=== PATIENT | female | born 1940 | race Caucasian/White ===

== ENCOUNTER 2019-07-16 21:22 | Inpatient (IN) | payer MEDICARE ==
[~2019-07-16] VITALS: Ht 154.9 cm; Wt 54.1 kg
[2019-07-16 20:00] VITALS: BP 92/55
[2019-07-16] MEDS ORDERED: SODIUM CHLORIDE FLUSH 10ML SYR IVF ONE (21:30)
[2019-07-16] MEDS ORDERED: SODIUM CHLORIDE 0.9% 1,000ML IVBOLUS ONE (21:30)
[2019-07-16] MEDS ORDERED: ONDANSETRON 2MG/ML, 2ML IVPush ONE (21:30)
[2019-07-16] MEDS ORDERED: MORPHINE SULFATE 4 MG/ML, 1ML ONE (21:36)
[2019-07-16] MEDS ORDERED: ONDANSETRON 2MG/ML, 2ML ONE (21:36)
[2019-07-16 21:58] LABS: RAPID INFLUENZA A Negative (Negative); RAPID INFLUENZA B Negative (Negative)
[2019-07-16 22:00] LABS: MEAN CORPUSCULAR HEMOGLOBIN 31.9 pg (27.0-34.8); MEAN CORPUSCULAR HGB CONC 32.9 g/dL (32.4-35.8); MEAN CORPUSCULAR VOLUME 97.1 fL (80-100); MEAN PLATELET VOLUME 7.3 fL (7.4-10.4); PLATELET COUNT 230 x10^3/uL (130-400); RED BLOOD COUNT 2.98 x10^6/uL (3.82-5.3); RED CELL DISTRIBUTION WIDTH 14.9 % (9.6-15.2)
[2019-07-16] MEDS ORDERED: MORPHINE SULFATE 4 MG/ML, 1ML IVPush PRN (22:00)
[2019-07-16] MEDS ORDERED: ALBUTEROL/IPRATROPIUM 2.5MG/0.5MG, 3 ML NPPB ONE (22:00)
--- NOTE | 2019-07-16 22:03 | NUR ---
DRE LEE [phone]
[2019-07-16 22:08] LABS: ALANINE AMINOTRANSFERASE 21 U/L (12-78); ALBUMIN 2.9 g/dL (3.4-5.0); ANION GAP 5 mmol/L (5-15); CALCIUM 8.3 mg/dL (8.5-10.1); CHLORIDE 102 mmol/L (98-107)
[2019-07-16 22:12] LABS: ALKALINE PHOSPHATASE 78 U/L (45-117); BILIRUBIN,TOTAL 0.5 mg/dL (0.2-1.0); TOTAL PROTEIN 6.1 g/dL (6.4-8.2); TROPONIN I 0.021 ng/mL (0.000-0.045)
[2019-07-16] MEDS ORDERED: CEFTRIAXONE PMX 1GM/50ML 50 ML ONE (22:13)
[2019-07-16 22:14] LABS: BASOPHILS % (AUTO) 0 % (0-1); EOSINOPHILS # (AUTO) 0.07 x10^3/uL (0-0.4); EOSINOPHILS % (AUTO) 1 % (1-7); LYMPHOCYTES # (AUTO) 0.25 x10^3/uL (1-3.4); LYMPHOCYTES % (AUTO) 2 % (22-44); MD SCAN; MONOCYTES # (AUTO) 0.09 x10^3/uL (0.2-0.8); MONOCYTES % (AUTO) 1 % (2-9); NEUTROPHILS # (AUTO) 11.76 x10^3/uL (1.8-6.8); NEUTROPHILS % (AUTO) 97 % (42-75)
[2019-07-16] MEDS ORDERED: ALBUTEROL/IPRATROPIUM 2.5MG/0.5MG, 3 ML ONE (22:14)
--- NOTE | 2019-07-16 22:17 | NUR ---
Patient BIB [facility]sa c/o shakiness x a couple days. Patient also has a fever. Per EMS, patient has been have shaky episodes for the last couple days. Patient is on home O2 at 3lpm. EMS admin 6lpm but was unable to give O2 sat at 3lpm. Patient has a hx of COPD, emphysema, and an MA. Patient is AAOx4, GCS 15 but sometimes gets confused and has difficulty finding her words. Patient states that is normal for her. Patient is restless but otherwise in NAD. Respirations even and unlabored.
[2019-07-16 22:21] LABS: CULTURE INDICATED? YES; MICROSCOPIC INDICATED
--- NOTE | 2019-07-16 22:22 | NUR ---
Spoke with Sunita, daughter, to obtain meds. She is to call back with full list.
[2019-07-16] MEDS ORDERED: CEFTRIAXONE PMX 1GM/50ML 50 ML IV ONE (22:30)
[2019-07-16] MEDS ORDERED: AZITHROMYCIN 500 MG in SODIUM CHLORIDE 0.9% 250 ML IV ONE (22:30)
--- NOTE | 2019-07-16 23:09 | NUR ---
Report given to SANDY Guajardo. Patient to be transferred to room 310.
[2019-07-17 00:15] VITALS: BP 99/44
[2019-07-17] MEDS ORDERED: PROCHLORPERAZINE 10MG TABLET PO PRN (00:30)
[2019-07-17] MEDS ORDERED: PHARMACY MAY ADJ FOR RENAL FX MC PRN (00:30)
[2019-07-17] MEDS ORDERED: OXYcodone/APAP 5/325MG TABLET ONE (01:08)
[2019-07-17 01:15] LABS: TROPONIN I 0.049 ng/mL (0.000-0.045)
[2019-07-17 05:54] LABS: MEAN CORPUSCULAR HGB CONC 32.6 g/dL (32.4-35.8); MEAN CORPUSCULAR VOLUME 98.1 fL (80-100); MEAN PLATELET VOLUME 7.1 fL (7.4-10.4); PLATELET COUNT 212 x10^3/uL (130-400); RED BLOOD COUNT 2.73 x10^6/uL (3.82-5.3); RED CELL DISTRIBUTION WIDTH 14.9 % (9.6-15.2)
[2019-07-17 06:06] LABS: CHLORIDE 103 mmol/L (98-107)
[2019-07-17 06:18] LABS: ALANINE AMINOTRANSFERASE 22 U/L (12-78); ALBUMIN 2.6 g/dL (3.4-5.0); ALKALINE PHOSPHATASE 69 U/L (45-117); ANION GAP 7 mmol/L (5-15); BILIRUBIN,TOTAL 0.2 mg/dL (0.2-1.0); CALCIUM 8.2 mg/dL (8.5-10.1); CREATININE 1.18 mg/dL (0.55-1.02); TOTAL PROTEIN 5.9 g/dL (6.4-8.2); TROPONIN I 0.182 ng/mL (0.000-0.045)
[2019-07-17 06:21] LABS: MD YES
[2019-07-17 06:24] LABS: BAND#(MANUAL) 2.58 x10^3/uL; BANDS%(MANUAL) 12 % (0-7); LYMPH#(MANUAL) 0.43 x10^3/uL (1-3.4); LYMPHS% (MANUAL) 2 % (22-44); METAMYELOCYTES# (MANUAL) 0.65 x10^3/uL (0-0); METAMYELOCYTES% (MANUAL) 3 % (0-1); MONOS#(MANUAL) 1.08 x10^3/uL (0.3-2.7); MONOS% (MANUAL) 5 % (2-9); SEG#(MANUAL) 16.77 x10^3/uL (1.8-6.8); SEGS% (MANUAL) 78 % (42-75)
[2019-07-17 06:27] LABS: OVALOCYTES 1+
[2019-07-17 06:29] LABS: ANISOCYTOSIS 1+
[2019-07-17 06:31] LABS: <PLATELET ESTIMATE> ADEQUATE; <PLT MORPHOLOGY> NORMAL PLT MORPH
[2019-07-17 07:59] VITALS: BP 115/51
[2019-07-17] MEDS ORDERED: ASCORBIC ACID 500 MG TABLET PO SCH (09:00)
[2019-07-17] MEDS: TRELEGY INH SCH (10:36)
[2019-07-17] MEDS: ENOXAPARIN 40 MG/0.4 ML SQ SCH (10:36)
[2019-07-17] MEDS: ZINC SULFATE 220 MG CAPSULE PO SCH (10:36)
[2019-07-17] MEDS ORDERED: MAGN250T8 PO (10:45)
[2019-07-17] MEDS ORDERED: MULT-797 PO (10:45)
[2019-07-17] MEDS ORDERED: TRAZ-175 PO (10:45)
[2019-07-17] MEDS ORDERED: OXYC5TAB3 PO (10:45)
[2019-07-17] MEDS ORDERED: ATOR20TA86 PO (10:45)
[2019-07-17] MEDS ORDERED: METO25TA35 PO (10:45)
[2019-07-17 12:36] VITALS: BP 111/52
[2019-07-17 12:44] LABS: TROPONIN I 0.396 ng/mL (0.000-0.045)
[2019-07-17] MEDS: CEFTRIAXONE PMX 2GM/50ML 50 ML IV SCH (15:58)
[2019-07-17] MEDS: ASCORBIC ACID 500 MG TABLET PO SCH (16:51)
[2019-07-17] MEDS: ACETAMINOPHEN 325 MG TABLET PO PRN (16:51)
[2019-07-17 20:15] VITALS: BP 134/56
[2019-07-17] MEDS ORDERED: AZITHROMYCIN 500 MG in SODIUM CHLORIDE 0.9% 250 ML IV SCH (22:30)
[2019-07-17] MEDS: ATORVASTATIN 20 MG TABLET PO SCH (22:43)
[2019-07-17] MEDS: OXYcodone IR 5MG TABLET PO PRN (22:44)
[2019-07-17] MEDS ORDERED: CEFTRIAXONE PMX 1GM/50ML 50 ML IVPB SCH (23:00)
[2019-07-18 00:37] VITALS: BP 127/52
[2019-07-18 05:49] LABS: CHLORIDE 103 mmol/L (98-107)
[2019-07-18 06:02] LABS: BASOPHILS # (AUTO) 0.02 x10^3/uL (0-0.1); BASOPHILS % (AUTO) 0 % (0-1); EOSINOPHILS # (AUTO) 0.21 x10^3/uL (0-0.4); EOSINOPHILS % (AUTO) 1 % (1-7); LYMPHOCYTES # (AUTO) 1.26 x10^3/uL (1-3.4); LYMPHOCYTES % (AUTO) 8 % (22-44); MD NO; MEAN CORPUSCULAR HGB CONC 33.1 g/dL (32.4-35.8); MEAN CORPUSCULAR VOLUME 96.7 fL (80-100); MONOCYTES # (AUTO) 1.31 x10^3/uL (0.2-0.8); MONOCYTES % (AUTO) 9 % (2-9); NEUTROPHILS # (AUTO) 12.62 x10^3/uL (1.8-6.8); NEUTROPHILS % (AUTO) 82 % (42-75); PLATELET COUNT 237 x10^3/uL (130-400); RED BLOOD COUNT 2.84 x10^6/uL (3.82-5.3); RED CELL DISTRIBUTION WIDTH 15.1 % (9.6-15.2)
[2019-07-18 06:04] LABS: ALANINE AMINOTRANSFERASE 64 U/L (12-78); ALBUMIN 2.9 g/dL (3.4-5.0); ALKALINE PHOSPHATASE 93 U/L (45-117); ANION GAP 4 mmol/L (5-15); BILIRUBIN,TOTAL 0.3 mg/dL (0.2-1.0); CALCIUM 9.2 mg/dL (8.5-10.1); TOTAL PROTEIN 6.5 g/dL (6.4-8.2)
[2019-07-18] MEDS: TRELEGY INH SCH (08:02)
[2019-07-18] MEDS: ENOXAPARIN 40 MG/0.4 ML SQ SCH (08:02)
[2019-07-18] MEDS: ZINC SULFATE 220 MG CAPSULE PO SCH (08:02)
[2019-07-18] MEDS: ASCORBIC ACID 500 MG TABLET PO SCH (08:02)
[2019-07-18 08:03] VITALS: BP 130/61
[2019-07-18] MEDS ORDERED: CHOLECALCIFEROL 5,000u TAB PO SCH (09:00)
[2019-07-18] MEDS: OXYcodone IR 5MG TABLET PO PRN (12:53)
[2019-07-18] MEDS ORDERED: OXYcodone IR 5MG TABLET PO PRN (13:00)
[2019-07-18 13:23] VITALS: BP 130/61
[2019-07-18] MEDS ORDERED: ALBUTEROL SULFATE 2.5 MG/3 ML NPPB PRN (14:30)
[2019-07-18] MEDS: ALBUTEROL/IPRATROPIUM 2.5MG/0.5MG, 3 ML NPPB SCH ×2 (15:00→21:00)
[2019-07-18] MEDS: CEFTRIAXONE PMX 2GM/50ML 50 ML IV SCH (15:02)
[2019-07-18 15:28] VITALS: BP 166/62
[2019-07-18] MEDS: ONDANSETRON ODT 4 MG PO PRN (17:03)
[2019-07-18 18:23] VITALS: BP 158/88
[2019-07-18] MEDS ORDERED: ACETAMINOPHEN 650 MG/20.3 ML UDC ONE (18:36)
[2019-07-18] MEDS: ACETAMINOPHEN 325 MG TABLET PO PRN (18:36)
[2019-07-18 20:30] VITALS: BP 150/82
[2019-07-18] MEDS: TRAZODONE 50MG TABLET PO PRN (20:31)
[2019-07-18] MEDS: METOPROLOL TARTRATE 25 MG TAB PO SCH (20:31)
[2019-07-18] MEDS: ATORVASTATIN 20 MG TABLET PO SCH (20:31)
[2019-07-18] MEDS: BUDESONIDE 0.5 MG/2 ML INHA INH SCH (21:00)
[2019-07-19 01:12] VITALS: BP 157/70
[2019-07-19] MEDS: ALBUTEROL/IPRATROPIUM 2.5MG/0.5MG, 3 ML NPPB SCH ×4 (03:00→20:00)
[2019-07-19] MEDS: ONDANSETRON ODT 4 MG PO PRN (04:43)
[2019-07-19 04:45] VITALS: BP 182/76
[2019-07-19] MEDS ORDERED: hydrALAzine 20 MG/ML, 1ML ONE (04:55)
[2019-07-19] MEDS ORDERED: hydrALAzine 20 MG/ML, 1ML IV ONE (05:00)
[2019-07-19 05:12] LABS: BASOPHILS # (AUTO) 0.01 x10^3/uL (0-0.1); BASOPHILS % (AUTO) 0 % (0-1); EOSINOPHILS # (AUTO) 0.21 x10^3/uL (0-0.4); EOSINOPHILS % (AUTO) 2 % (1-7); LYMPHOCYTES # (AUTO) 0.89 x10^3/uL (1-3.4); LYMPHOCYTES % (AUTO) 8 % (22-44); MD NO; MEAN CORPUSCULAR HEMOGLOBIN 31.9 pg (27.0-34.8); MEAN CORPUSCULAR HGB CONC 32.8 g/dL (32.4-35.8); MEAN CORPUSCULAR VOLUME 97.5 fL (80-100); MEAN PLATELET VOLUME 7.4 fL (7.4-10.4); MONOCYTES # (AUTO) 0.85 x10^3/uL (0.2-0.8); MONOCYTES % (AUTO) 8 % (2-9); NEUTROPHILS # (AUTO) 9.25 x10^3/uL (1.8-6.8); NEUTROPHILS % (AUTO) 83 % (42-75); PLATELET COUNT 255 x10^3/uL (130-400)
[2019-07-19 05:21] LABS: ALANINE AMINOTRANSFERASE 54 U/L (12-78); ALBUMIN 2.8 g/dL (3.4-5.0); ANION GAP 5 mmol/L (5-15); CALCIUM 9.1 mg/dL (8.5-10.1); CHLORIDE 102 mmol/L (98-107); CREATININE 0.62 mg/dL (0.55-1.02)
[2019-07-19 05:23] LABS: ALKALINE PHOSPHATASE 87 U/L (45-117); BILIRUBIN,TOTAL 0.5 mg/dL (0.2-1.0); TOTAL PROTEIN 6.2 g/dL (6.4-8.2)
[2019-07-19] MEDS ORDERED: NITROGLYCERIN 0.4 MG BOTTLE (25 TABS) SL ONE ×2 (05:38)
[2019-07-19] MEDS ORDERED: NITROGLYCERIN OINT 2%, 1GM TP STA (05:54)
[2019-07-19] MEDS ORDERED: NITROGLYCERIN 0.4 MG BOTTLE (25 TABS) SL PRN (06:00)
[2019-07-19 06:06] LABS: TROPONIN I 0.201 ng/mL (0.000-0.045)
[2019-07-19 06:29] VITALS: BP 154/70
[2019-07-19] MEDS ORDERED: MORPHINE SULFATE 4 MG/ML, 1ML IVPush PRN (06:30)
[2019-07-19] MEDS: BUDESONIDE 0.5 MG/2 ML INHA INH SCH ×2 (08:05→20:00)
[2019-07-19] MEDS: METOPROLOL TARTRATE 25 MG TAB PO SCH ×2 (08:41→20:35)
[2019-07-19] MEDS: ENOXAPARIN 40 MG/0.4 ML SQ SCH (08:41)
[2019-07-19] MEDS: OXYcodone IR 5MG TABLET PO PRN (08:41)
[2019-07-19] MEDS: ASPIRIN 81 MG TABLET CHEW PO SCH (08:42)
[2019-07-19] MEDS: LISINOPRIL 20 MG TABLET PO SCH (08:42)
[2019-07-19] MEDS ORDERED: MAALOX/HYOSCYAMINE/LIDOCAINE 45 ML BTL PO PRN (09:30)
[2019-07-19] MEDS ORDERED: PANTOPRAZOLE 40 MG IV IVPush SCH (09:30)
[2019-07-19] MEDS ORDERED: OMNIPAQUE 350 MG/ML, 100ML BOTTLE ONE (09:44)
[2019-07-19 12:02] LABS: TROPONIN I 0.136 ng/mL (0.000-0.045)
[2019-07-19 13:05] VITALS: BP 152/65
[2019-07-19] MEDS: CEFTRIAXONE PMX 2GM/50ML 50 ML IV SCH (15:29)
[2019-07-19 17:49] LABS: TROPONIN I 0.157 ng/mL (0.000-0.045)
[2019-07-19 19:32] VITALS: BP 148/61
[2019-07-19] MEDS: ATORVASTATIN 20 MG TABLET PO SCH (20:34)
[2019-07-19] MEDS: TRAZODONE 50MG TABLET PO PRN (20:35)
[2019-07-20 00:53] VITALS: BP 130/76
[2019-07-20] MEDS: ALBUTEROL/IPRATROPIUM 2.5MG/0.5MG, 3 ML NPPB SCH ×3 (02:59→15:00)
[2019-07-20] MEDS ORDERED: PANTOPRAZOLE 40MG TABLET PO SCH (06:00)
[2019-07-20 06:02] LABS: BASOPHILS # (AUTO) 0.02 x10^3/uL (0-0.1); BASOPHILS % (AUTO) 0 % (0-1); EOSINOPHILS % (AUTO) 2 % (1-7); LYMPHOCYTES # (AUTO) 1.03 x10^3/uL (1-3.4); LYMPHOCYTES % (AUTO) 11 % (22-44); MD NO; MEAN CORPUSCULAR HEMOGLOBIN 31.6 pg (27.0-34.8); MEAN CORPUSCULAR HGB CONC 32.8 g/dL (32.4-35.8); MEAN CORPUSCULAR VOLUME 96.3 fL (80-100); MEAN PLATELET VOLUME 7.9 fL (7.4-10.4); MONOCYTES # (AUTO) 0.81 x10^3/uL (0.2-0.8); MONOCYTES % (AUTO) 8 % (2-9); NEUTROPHILS # (AUTO) 7.65 x10^3/uL (1.8-6.8); NEUTROPHILS % (AUTO) 79 % (42-75); PLATELET COUNT 283 x10^3/uL (130-400); RED BLOOD COUNT 2.98 x10^6/uL (3.82-5.3); RED CELL DISTRIBUTION WIDTH 14.9 % (9.6-15.2)
[2019-07-20 06:07] LABS: ALANINE AMINOTRANSFERASE 55 U/L (12-78); ALBUMIN 2.9 g/dL (3.4-5.0); ANION GAP 3 mmol/L (5-15); CHLORIDE 103 mmol/L (98-107); CREATININE 0.67 mg/dL (0.55-1.02)
[2019-07-20 06:12] LABS: ALKALINE PHOSPHATASE 86 U/L (45-117); BILIRUBIN,TOTAL 0.4 mg/dL (0.2-1.0); TOTAL PROTEIN 6.3 g/dL (6.4-8.2); TROPONIN I 0.128 ng/mL (0.000-0.045)
[2019-07-20 06:36] VITALS: BP 193/69
[2019-07-20] MEDS: ASPIRIN 81 MG TABLET CHEW PO SCH (07:39)
[2019-07-20] MEDS: METOPROLOL TARTRATE 25 MG TAB PO SCH (07:39)
[2019-07-20] MEDS: ONDANSETRON ODT 4 MG PO PRN (07:39)
[2019-07-20] MEDS: ENOXAPARIN 40 MG/0.4 ML SQ SCH (07:40)
[2019-07-20] MEDS: LISINOPRIL 20 MG TABLET PO SCH (07:40)
[2019-07-20] MEDS ORDERED: PANTOPRAZOLE 40 MG IV IVPush SCH (09:00)
[2019-07-20] MEDS: BUDESONIDE 0.5 MG/2 ML INHA INH SCH (09:00)
[2019-07-20 09:21] VITALS: BP 163/70
[2019-07-20] MEDS: GUAIFENESIN 200 MG TABLET PO SCH ×2 (10:34→16:19)
[2019-07-20] MEDS ORDERED: REGADENOSON 0.4 MG/5 ML SYRINGE ONE (12:47)
[2019-07-20] MEDS ORDERED: AMINOPHYLLINE 25 MG/ML, 10ML ONE (13:13)
[2019-07-20 14:41] VITALS: BP 144/67
[2019-07-20] MEDS ORDERED: ONDA4TAB13 PO (15:15)
[2019-07-20] MEDS ORDERED: TIOT18CA INH (15:15)
[2019-07-20] MEDS ORDERED: BUDE10.2 INH (15:15)
[2019-07-20] MEDS ORDERED: GUAI200T37 PO (15:15)
[2019-07-20] MEDS ORDERED: ALBU90AE2 INH (15:15)
[2019-07-20] MEDS ORDERED: ASPI-515 PO (15:15)
[2019-07-20] MEDS ORDERED: LISI-170 PO (15:15)
[2019-07-20] MEDS ORDERED: PANT40TA5 PO (15:15)
[2019-07-20] MEDS ORDERED: SULF1TAB24 PO (15:15)
[2019-07-20] MEDS ORDERED: SULFAMETH./TRIMETHOPRIM DS 800MG/160MG TABLET PO SCH (21:00)
== END 2019-07-20 18:49 | disposition home health service (06) | DRG 871 ==
LOC: ED 21:37 → EDIP 22:52 → 3WST 23:28 → 4EST 07-18 15:11
PROVIDERS: ADMIT Family Medicine; ATTEND Internal Medicine
PROC: 0T9B70Z Drainage of Bladder with Drainage Device, Via Natural or Artificial Opening (ICD-10-PCS; principal; 2019-07-16)
DX: A41.9 Sepsis, unspecified organism (principal); G93.41 Metabolic encephalopathy; J15.9 Unspecified bacterial pneumonia; J96.21 Acute and chronic respiratory failure with hypoxia; N17.0 Acute kidney failure with tubular necrosis; I21.A1 Myocardial infarction type 2; N17.9 Acute kidney failure, unspecified; E46 Unspecified protein-calorie malnutrition; J44.0 Chronic obstructive pulmonary disease with (acute) lower respiratory infection; J44.1 Chronic obstructive pulmonary disease with (acute) exacerbation; N12 Tubulo-interstitial nephritis, not specified as acute or chronic; D64.9 Anemia, unspecified; I25.10 Atherosclerotic heart disease of native coronary artery without angina pectoris; Z20.818 Contact with and (suspected) exposure to other bacterial communicable diseases; B96.20 Unspecified Escherichia coli [E. coli] as the cause of diseases classified elsewhere; K29.70 Gastritis, unspecified, without bleeding; K21.9 Gastro-esophageal reflux disease without esophagitis; Z95.5 Presence of coronary angioplasty implant and graft; Z68.22 Body mass index [BMI] 22.0-22.9, adult
CPT/HCPCS: 36415; 71045; 71275; 76770; 78452; 80053; 81001; 82728; 82962; 83605; 83615; 83690; 83880; 84145; 84484; 85025; 85379; 86140; 87040; 87077; 87086; 87186; 87400; 93005; 93017; 93306; 94640; 96374; 96375; 99291; G0378; J0456; J0696; J1650; J2405; J2785; J7626; Q0162; Q9967; A9502; C9113; J0280; J0360; J2270; J7030; J7050; U0001